=== PATIENT | female | born 1995 | race Caucasian/White ===

== ENCOUNTER 2016-05-11 20:48 | Inpatient (IN) ==
[2016-05-11] MEDS ORDERED: PEPCID IV PRN (21:05)
[2016-05-11] MEDS ORDERED: AMBIEN PO PRN (21:05)
[2016-05-11] MEDS ORDERED: KEFZOL 1 GM/D5W 1 GM/50 ML IVPB IV PRN (21:05)
[2016-05-11] MEDS ORDERED: PEPCID PO PRN (21:05)
[2016-05-11] MEDS ORDERED: BRETHINE SUBQ PRN (21:05)
[2016-05-11] MEDS ORDERED: STADOL IV PRN ×3 (21:05)
[2016-05-11] MEDS ORDERED: REGLAN PO ONE (21:05)
[2016-05-11] MEDS ORDERED: TYLENOL PO PRN (21:05)
[2016-05-11] MEDS ORDERED: ZOFRAN IV PRN (21:05)
[2016-05-11] MEDS: LR 1,000 ML IV ONE (21:50)
[2016-05-11] MEDS ORDERED: AMPICILLIN 2 GM/NS 2 GM/100 ML IVPB IV ONE (22:00)
[2016-05-11] MEDS ORDERED: CYTOTEC PO ONE (22:30)
[2016-05-11 23:19] LABS: URINE SOURCE VOIDED
[2016-05-11 23:19] LABS: MANUAL DIFF NEEDED? NO
[2016-05-11 23:20] LABS: BASO% 0.1 % (0.0-0.8); EOS# 0.15 X1000 (0.0-0.7); HEMATOCRIT 36.1 % (37.0-47.0); HEMOGLOBIN 12.4 g/dL (12.0-16.0); IMM GRAN# 0.09 X1000 (0.0-0.04); IMM GRAN% 0.6 % (0.0-0.5); LYMPH# 3.17 X1000 (1.2-3.4); LYMPH% 21.3 % (20.5-51.1); MCH 30.6 PG (27-31); MCHC 34.3 g/dL (33-37); MCV 89.1 FL (81-99); MONO# 0.96 X1000 (0.11-0.59); MONO% 6.5 % (1.7-9.3); MPV 10.5 FL (7.4-10.4); NEUT% 70.5 % (42.2-75.2); PLT 270 X1000 (130-400); RBC 4.05 XMIL (4.2-5.4)
[2016-05-11 23:43] LABS: BILIRUBIN URINE NEGATIVE (NEGATIVE); BLOOD URINE NEGATIVE (NEGATIVE); CLARITY CLEAR (CLEAR); COLOR YELLOW; GLUCOSE URINE NEGATIVE (NEGATIVE); LEUKOCYTES URINE TRACE (NEGATIVE); NITRITE URINE NEGATIVE (NEGATIVE); PH URINE 6.5; PROTEIN URINE TRACE mg/dL (NEGATIVE); UROBILINOGEN URINE NORMAL
[2016-05-12] MEDS: AMPICILLIN 1 GM/NS 1 GM/50 ML IVPB IV SCH ×3 (02:14→10:35)
[2016-05-12] MEDS: LR 1,000 ML IV ONE ×2 (06:21→08:34)
[2016-05-12] MEDS ORDERED: PITOCIN 30 UNITS/LR 30 UNITS/500 ML IV.SOLN IV SCH (07:00)
[2016-05-12] MEDS ORDERED: FENTANYL-BUPIV-NS 2 MCG-0.1% 200 ML EPIDURAL PRN (08:16)
[2016-05-12] MEDS ORDERED: XYLOCAINE-MPF 1% INJ ONE (08:30)
[2016-05-12] MEDS: CYTOTEC PO SCH (08:33)
[2016-05-12] MEDS ORDERED: M-M-R II VACCINE SUBQ ONE (13:09)
[2016-05-12] MEDS ORDERED: XYLOCAINE-MPF 1% INJ PRN (13:09)
[2016-05-12] MEDS ORDERED: HYDROXYZINE PO PRN (13:09)
[2016-05-12] MEDS ORDERED: PERCOCET-5 PO PRN (13:09)
[2016-05-12] MEDS ORDERED: AMBIEN PO PRN (13:09)
[2016-05-12] MEDS ORDERED: PITOCIN 20 UNITS/LR 20 UNITS/1,000 ML IV.SOLN IV SCH (13:09)
[2016-05-12] MEDS ORDERED: BOOSTRIX VACCINE IM ONE (13:09)
[2016-05-12] MEDS ORDERED: PITOCIN 30 UNITS/LR 30 UNITS/500 ML IV.SOLN IV ONE (13:09)
[2016-05-12] MEDS ORDERED: PERI MEDS (DERMOPLAST/NUPERCAINAL/TUCKS) MISC PRN (13:09)
[2016-05-12] MEDS ORDERED: BENADRYL PO PRN (13:09)
[2016-05-12] MEDS ORDERED: PITOCIN IM PRN (13:09)
[2016-05-12] MEDS ORDERED: CYTOTEC PO PRN (13:09)
[2016-05-12] MEDS ORDERED: BENADRYL IV PRN (13:09)
[2016-05-12] MEDS ORDERED: MINERAL OIL PO PRN (13:09)
[2016-05-12] MEDS ORDERED: HYDROXYZINE IM PRN (13:09)
[2016-05-12] MEDS: PERCOCET-10 PO PRN ×2 (14:30→20:54)
[2016-05-12] MEDS ORDERED: PNEUMOVAX 23 IM ONE (19:00)
[2016-05-12] MEDS: MOTRIN PO PRN (20:54)
[2016-05-12] MEDS: PERICOLACE PO SCH (20:54)
[2016-05-13] MEDS: AMPICILLIN 1 GM/NS 1 GM/50 ML IVPB IV SCH (06:09)
[2016-05-13 06:38] LABS: HEMOGLOBIN 10.9 g/dL (12.0-16.0); MCH 30.1 PG (27-31); MCV 91.2 FL (81-99); MPV 10.3 FL (7.4-10.4); RBC 3.62 XMIL (4.2-5.4)
[2016-05-13] MEDS: PERCOCET-10 PO PRN ×3 (10:02→20:56)
[2016-05-13] MEDS: MOTRIN PO PRN ×2 (10:02→20:56)
[2016-05-13] MEDS: PERICOLACE PO SCH (20:56)
[2016-05-14 07:12] VITALS: BP 115/59
[2016-05-14] MEDS: MOTRIN PO PRN (08:24)
[2016-05-14] MEDS: PERCOCET-10 PO PRN ×2 (08:24→13:16)
== END 2016-05-14 14:00 | disposition home or self-care (01) ==
LOC: P.LD 20:48
PROVIDERS: ADMIT Obstetrics & Gynecology; ATTEND Obstetrics & Gynecology

== ENCOUNTER 2019-03-07 07:42 | Inpatient (IN) ==
[2019-03-07] MEDS ORDERED: AMPICILLIN 2 GM in NS 100 ML IV ONE (09:21)
[2019-03-07] MEDS ORDERED: PEPCID IV PRN (09:21)
[2019-03-07] MEDS ORDERED: STADOL IV PRN (09:21)
[2019-03-07] MEDS ORDERED: KEFZOL 2 GM/D5W 2 GM/50 ML IVPB IV PRN (09:21)
[2019-03-07] MEDS ORDERED: REGLAN PO PRN (09:21)
[2019-03-07] MEDS ORDERED: PEPCID PO PRN ×2 (09:21)
[2019-03-07] MEDS ORDERED: ZOFRAN IV PRN (09:21)
[2019-03-07] MEDS ORDERED: TYLENOL PO PRN (09:21)
[2019-03-07] MEDS ORDERED: PITOCIN 30 UNITS/NS 30 UNIT/500 ML IV.SOLN IV SCH ×2 (09:30→13:30)
[2019-03-07] MEDS ORDERED: SODIUM CHLORIDE 0.9% INJ SCH (09:30)
[2019-03-07 09:31] LABS: URINE SOURCE VOIDED
[2019-03-07 09:33] LABS: BILIRUBIN URINE NEGATIVE (NEGATIVE); BLOOD URINE TRACE (NEGATIVE); COLOR YELLOW; GLUCOSE URINE NEGATIVE (NEGATIVE); KETONE URINE TRACE mg/dL (NEGATIVE); LEUKOCYTES URINE TRACE (NEGATIVE); NITRITE URINE NEGATIVE (NEGATIVE); PH URINE 6.5; PROTEIN URINE TRACE mg/dL (NEGATIVE); SP GRAVITY URINE 1.028; TURBIDITY URINE HAZY (CLEAR); UROBILINOGEN URINE NORMAL (NORMAL)
[2019-03-07 09:49] LABS: BASO# 0.03 X1000 (0.0-0.2); BASO% 0.3 % (0.0-0.8); EOS# 0.13 X1000 (0.0-0.7); EOS% 1.1 % (0.0-10.0); HEMATOCRIT 35.3 % (37.0-47.0); HEMOGLOBIN 11.4 g/dL (12.0-16.0); IMM GRAN# 0.08 X1000 (0.0-0.04); IMM GRAN% 0.7 % (0.0-0.5); LYMPH# 2.56 X1000 (1.2-3.4); LYMPH% 22.3 % (20.5-51.1); MCH 28.7 PG (27-31); MCHC 32.3 g/dL (33-37); MCV 88.9 FL (81-99); MONO# 0.81 X1000 (0.11-0.59); MONO% 7.1 % (1.7-9.3); MPV 10.1 FL (7.4-10.4); NEUT# 7.85 X1000 (1.4-6.5); NEUT% 68.5 % (42.2-75.2); PLT 237 X1000 (130-400); RBC 3.97 XMIL (4.2-5.4); WBC 11.46 X1000 (4.8-10.8)
--- NOTE | 2019-03-07 09:54 | Diag Imaging Result Doc PS360 ---
EXAM: US OBS COMPLETE > 14 WKS HISTORY: variable decelerations TECHNIQUE: OB ultrasound COMPARISON: None. FINDINGS: There is a late term intrauterine . heart rate is 136 bpm. Amniotic fluid index is calculated to be 14.20 cm. Fetus is in cephalic presentation. IMPRESSION: heart rate is 136 bpm. Electronically signed by Cecilio Salas 03/07/2019 9:51 AM
[2019-03-07] MEDS: LR 1,000 ML IV SCH ×2 (09:56→10:48)
[2019-03-07] MEDS ORDERED: XYLOCAINE-MPF 1% INJ PRN ×2 (10:00→13:22)
[2019-03-07] MEDS ORDERED: MINERAL OIL TOP PRN (10:01)
[2019-03-07 10:15] LABS: UR AMPHETAMINES QUAL NONE DETECTED (NONE DETECT); UR BARBITUATES QUAL NONE DETECTED (NONE DETECT); UR BENZODIAZEPIN QUAL NONE DETECTED (NONE DETECT); UR CANNABINOIDS QUAL PRESUMPTIVE POSITIVE (NONE DETECT); UR COCAINE QUAL NONE DETECTED (NONE DETECT); UR METHADONE QUAL NONE DETECTED (NONE DETECT); UR OPIATES QUAL NONE DETECTED (NONE DETECT); UR OXYCODONE QUAL NONE DETECTED (NONE DETECT); UR PCP QUAL NONE DETECTED (NONE DETECT)
[2019-03-07] MEDS ORDERED: FENTANYL-BUPIV-NS 500 MCG-0.125% 250 ML EPIDURAL PRN (10:28)
[2019-03-07] MEDS ORDERED: SODIUM CHLORIDE 0.9% IV ONE (10:45)
[2019-03-07] MEDS ORDERED: NEO-SYNEPHRINE IV ONE (10:45)
[2019-03-07] MEDS ORDERED: FENTANYL IV ONE (10:45)
[2019-03-07] MEDS ORDERED: NAROPIN 0.2% INJ ONE (10:45)
--- NOTE | 2019-03-07 10:50 | HISTORY AND PHYSICAL ---
ALLERGIES: None. This patient is a 22-year-old 4, para 1-1-1-2 at 39 and 5, who presented to Labor and Delivery with complaint of contractions. PAST MEDICAL HISTORY, SURGICAL HISTORY: Remarkable for an ectopic in 2018 with removal of left fallopian tube. History of nausea and vomiting. Hepatitis C antibody, and she is Rh negative. She is a positive smoker. She does not drink. She has no known drug allergies. REVIEW OF SYSTEMS: Essentially negative. PHYSICAL EXAMINATION: WDWN WF in no acute distress, comfortable VITAL SIGNS: Stable. She is afebrile. CARDIOVASCULAR EXAM: Negative. ABDOMEN: Soft and nontender. PELVIC: Done by the staff, 3 to 4 cm, 80% and posterior. She was having irregular contractions. heart rate was 130s reactive with accels. Bedside ultrasound noted the impression of decreased amniotic fluid. The cord was in the fluid pockets, and she did have a grade 3 placenta. The baby noted to be vertex presentation. DIAGNOSTIC DATA: Her lab work is pending. ASSESSMENT/PLAN: Multipara at term in early labor. She is also positive GBS. She is admitted for labor management. GBS will be treated with ampicillin and she will be augmented as indicated. Patient verbalized understanding of management plans and all questions answered. [facility]
--- NOTE | 2019-03-07 12:26 | PROVIDER PROGRESS NOTE ---
- Subjective Patient comfortable with epidural Fhr stable, reactive Exam: 9/C/plus 1, continue to follow, expect delivery shortly Physical Exam Objective Vital Signs - 8 hr 03/07/19 10:14 03/07/19 12:00 Temperature 98 F 97 F L Pulse Rate 72 78 Respiratory Rate 18 18 Blood Pressure 105/60 93/60 O2 Sat by Pulse Oximetry 98 97 Active Medications Generic Name Dose Route Start Last Admin Trade Name Freq PRN Reason Stop Dose Admin Acetaminophen 650 mg 03/07/19 09:21 Tylenol PO Q4-6H PRN PRN Headache Butorphanol Tartrate 2 mg 03/07/19 09:21 Stadol IV ONCE PRN PRN Pain Famotidine 40 mg 03/07/19 09:21 Pepcid PO Q12H PRN PRN GI upset or indigestion Famotidine 20 mg 03/07/19 09:21 Pepcid IV Q12H PRN PRN GI upset or indigestion Famotidine 20 mg 03/07/19 09:21 Pepcid PO ONCE PRN PRN section Cefazolin Sodium/Dextrose 2 gm in 50 mls @ 50 mls/hr 03/07/19 09:21 Kefzol 2 Gm/D5w IV ONCE PRN PRN section Lactated Ringer's 1,000 mls @ 0 mls/hr 03/07/19 09:30 03/07/19 10:48 Lr IV 999 mls/hr .Q0M JAME Administration As Directed Oxytocin/Sodium Chloride 30 unit in 500 mls @ 0 mls/hr 03/07/19 09:30 03/07/19 10:09 Pitocin 30 Units/Ns IV 2 mls/hr .Q0M JAME Administration As Directed Ampicillin Sodium 1 gm/ Sodium 50 mls @ 100 mls/hr 03/07/19 13:23 Chloride IV Q4H JAME Fentanyl/Bupivacaine/Sodium Chlor 250 mls @ 0 mls/hr 03/07/19 10:28 Zykspxzq-Mzgoq-Yf 500 Mcg-0.125% EPIDURAL .Q0M PRN As Directed Lidocaine HCl 30 ml 03/07/19 10:00 Xylocaine-Mpf 1% INJ PRN PRN local for vaginal repair Metoclopramide HCl 10 mg 03/07/19 09:21 Reglan PO ONCE PRN PRN section Mineral Oil 30 ml 03/07/19 10:01 Mineral Oil TOP PRN PRN perineal massage Ondansetron HCl 4 mg 03/07/19 09:21 Zofran IV PRN PRN Nausea Sodium Chloride 5 - 10 ml 03/07/19 09:30 Sodium Chloride 0.9% INJ DIRECTED [facility] Laboratory Results - last 24 hr 03/07/19 03/07/19 03/07/19 07:55 07:55 09:30 WBC RBC Hgb Hct MCV MCH MCHC RDW Std Deviation Plt Count MPV Immature Gran % (Auto) Neut % (Auto) Lymph % (Auto) [place] % (Auto) Eos % (Auto) Baso % (Auto) Immature Gran # (Auto) Neut # (Auto) Lymph # (Auto) [place] # (Auto) Eos # (Auto) Baso # (Auto) Urine Source VOIDED Urine Color YELLOW Urine Turbidity HAZY Urine pH 6.5 Ur Specific [place] 1.028 Urine Protein TRACE A Ur Glucose (Stick) NEGATIVE Ur Ketones (Stick) TRACE A Urine Blood TRACE A Urine Nitrite NEGATIVE Urine Bilirubin NEGATIVE Urobilinogen Dipstick NORMAL Urine Leukocytes TRACE A Urine Opiates Screen NONE DETECTED Ur Oxycodone Screen NONE DETECTED Ur Methadone, Qual NONE DETECTED Ur Barbiturates Screen NONE DETECTED Ur Phencyclidine Scrn NONE DETECTED Ur Amphetamines Screen NONE DETECTED U Benzodiazepines Scrn NONE DETECTED Urine Cocaine Screen NONE DETECTED U Cannabinoids Screen PRESUMPTIVE POSITIVE A RPR NON-REACTIVE 03/07/19 09:30 WBC 11.46 H RBC 3.97 L Hgb 11.4 L Hct 35.3 L MCV 88.9 MCH 28.7 MCHC 32.3 L RDW Std Deviation 14.0 Plt Count 237 MPV 10.1 Immature Gran % (Auto) 0.7 H Neut % (Auto) 68.5 Lymph % (Auto) 22.3 [place] % (Auto) 7.1 Eos % (Auto) 1.1 Baso % (Auto) 0.3 Immature Gran # (Auto) 0.08 H Neut # (Auto) 7.85 H Lymph # (Auto) 2.56 [place] # (Auto) 0.81 H Eos # (Auto) 0.13 Baso # (Auto) 0.03 Urine Source Urine Color Urine Turbidity Urine pH Ur Specific [place] Urine Protein Ur Glucose (Stick) Ur Ketones (Stick) Urine Blood Urine Nitrite Urine Bilirubin Urobilinogen Dipstick Urine Leukocytes Urine Opiates Screen Ur Oxycodone Screen Ur Methadone, Qual Ur Barbiturates Screen Ur Phencyclidine Scrn Ur Amphetamines Screen U Benzodiazepines Scrn Urine Cocaine Screen U Cannabinoids Screen RPR
[2019-03-07] MEDS ORDERED: PERI MEDS (DERMOPLAST/NUPERCAINAL/TUCKS) MISC PRN (13:22)
[2019-03-07] MEDS ORDERED: HYDROXYZINE IM PRN (13:22)
[2019-03-07] MEDS ORDERED: ATARAX PO PRN (13:22)
[2019-03-07] MEDS ORDERED: BOOSTRIX VACCINE IM ONE (13:22)
[2019-03-07] MEDS ORDERED: AMBIEN PO PRN (13:22)
[2019-03-07] MEDS ORDERED: CYTOTEC PO PRN (13:22)
[2019-03-07] MEDS ORDERED: MINERAL OIL PO PRN (13:22)
[2019-03-07] MEDS ORDERED: BENADRYL IV PRN (13:22)
[2019-03-07] MEDS ORDERED: M-M-R II VACCINE SUBQ ONE (13:22)
[2019-03-07] MEDS ORDERED: PITOCIN IM PRN (13:22)
[2019-03-07] MEDS ORDERED: BENADRYL PO PRN (13:22)
[2019-03-07] MEDS ORDERED: AMPICILLIN 1 GM in NS 50 ML IV SCH (13:23)
[2019-03-07] MEDS ORDERED: PERCOCET-5 PO PRN (13:31)
[2019-03-07] MEDS ORDERED: PITOCIN 20 UNITS/NS 20 UNITS/1,000 ML IV.SOLN ONE (14:28)
[2019-03-07] MEDS ORDERED: PITOCIN 20 UNITS/NS 20 UNITS/1,000 ML IV.SOLN IV SCH (15:00)
--- NOTE | 2019-03-07 18:26 | OPERATIVE NOTE ---
PROCEDURE DATE: 03/07/2019 DELIVERY NOTE: DELIVERY DATE AND TIME: On 03/07/2019 at 1309 hours. PROCEDURE: Amniotic fluid was clear. Placenta delivery was 1312 hours, spontaneous, a 3-vessel cord. The patient delivered spontaneously over an intact perineum of a full-term living female child, 7 pounds 11 ounces. scores were 9 and 9. resuscitation was none. COMPLICATIONS: None. ANESTHESIA: Epidural. FINDINGS: The placenta was expressed intact with no episiotomy, and no lacerations were noted. ESTIMATED BLOOD LOSS: 250 mL. MATERNAL COMPLICATIONS: None.
[2019-03-07] MEDS: PERICOLACE PO SCH (21:07)
[2019-03-08 07:30] LABS: HEMATOCRIT 32.5 % (37.0-47.0); HEMOGLOBIN 10.5 g/dL (12.0-16.0); MCH 29.5 PG (27-31); MCHC 32.3 g/dL (33-37); MCV 91.3 FL (81-99); MPV 10.3 FL (7.4-10.4); RBC 3.56 XMIL (4.2-5.4); RDW 14.2 % (11.5-14.5); WBC 11.6 X1000 (4.8-10.8)
[2019-03-08] MEDS: MOTRIN PO PRN ×2 (08:04→15:57)
--- NOTE | 2019-03-08 10:03 | OB/GYN PROGRESS NOTE ---
- Subjective Patient resting in bed and doing well. Denies dizziness. Her bleeding is well controlled. She is bottle feeding. OB Physical Exam Vital Signs - 8 hr 03/08/19 04:00 03/08/19 08:00 Temperature 98.0 F 96.7 F L Pulse Rate 66 60 Respiratory Rate 16 18 Blood Pressure 108/63 118/66 O2 Sat by Pulse Oximetry 99 99 - CONSTITUTIONAL General Appearance: appears well - RESPIRATORY Respiratory: lungs clear - CARDIOVASCULAR Cardiovascular: regular rate, rhythm - GASTROINTESTINAL (ABDOMEN) Abdominal Exam: non tender - MUSCULOSKELETAL Extremity: non-tender - NEUROLOGIC Neurologic: grossly normal - PSYCHIATRIC Psych/Mental Status: normal mood/affect (Uterus below the umbilicus) Active Medications Generic Name Dose Route Start Last Admin Trade Name Freq PRN Reason Stop Dose Admin Acetaminophen 650 mg 03/07/19 09:21 Tylenol PO Q4-6H PRN PRN Headache Benzocaine 1 each 03/07/19 13:22 Betsy Meds (Dermoplast/Nupercainal/Tucks) MISC 3-4XDAY PRN PRN episiotomy/hemorrhoids Butorphanol Tartrate 2 mg 03/07/19 09:21 Stadol IV ONCE PRN PRN Pain Diphenhydramine HCl 25 mg 03/07/19 13:22 Benadryl PO Q4H PRN PRN Itching Diphenhydramine HCl 12.5 mg 03/07/19 13:22 Benadryl IV Q4H PRN PRN Itching Famotidine 40 mg 03/07/19 09:21 Pepcid PO Q12H PRN PRN GI upset or indigestion Famotidine 20 mg 03/07/19 09:21 Pepcid IV Q12H PRN PRN GI upset or indigestion Famotidine 20 mg 03/07/19 09:21 Pepcid PO ONCE PRN PRN section Hydroxyzine HCl 50 mg 03/07/19 13:22 Atarax PO Q3-4H PRN PRN Nausea Hydroxyzine HCl 50 mg 03/07/19 13:22 Hydroxyzine IM Q3-4H PRN PRN Nausea Cefazolin Sodium/Dextrose 2 gm in 50 mls @ 50 mls/hr 03/07/19 09:21 Kefzol 2 Gm/D5w IV ONCE PRN PRN section Lactated Ringer's 1,000 mls @ 0 mls/hr 03/07/19 09:30 03/07/19 10:48 Lr IV 999 mls/hr .Q0M JAME Administration As Directed Fentanyl/Bupivacaine/Sodium Chlor 250 mls @ 0 mls/hr 03/07/19 10:28 03/07/19 11:35 Xatoqlzr-Ecxer-At 500 Mcg-0.125% EPIDURAL 16 mls/hr .Q0M PRN Administration As Directed Oxytocin/Sodium Chloride 20 units in 1,000 mls @ 0 mls/hr 03/07/19 15:00 Pitocin 20 Units/Ns IV .Q0M JAME As Directed Ibuprofen 800 mg 03/07/19 13:22 03/08/19 08:04 Motrin PO 800 mg Q8H PRN PRN Administration cramping Lidocaine HCl 30 ml 03/07/19 10:00 Xylocaine-Mpf 1% INJ PRN PRN local for vaginal repair Lidocaine HCl 30 ml 03/07/19 13:22 Xylocaine-Mpf 1% INJ PRN PRN Perineal repair Metoclopramide HCl 10 mg 03/07/19 09:21 Reglan PO ONCE PRN PRN section Mineral Oil 30 ml 03/07/19 10:01 Mineral Oil TOP PRN PRN perineal massage Mineral Oil 30 ml 03/07/19 13:22 Mineral Oil PO PRN PRN Perineal massage Misoprostol 800 microgm 03/07/19 13:22 Cytotec PO PRN PRN Severe bleeding Ondansetron HCl 4 mg 03/07/19 09:21 Zofran IV PRN PRN Nausea Oxycodone/Acetaminophen 1 each 03/07/19 13:31 Percocet-5 PO Q4H PRN PRN Pain Oxytocin 20 unit 03/07/19 13:22 Pitocin IM PRN PRN Severe bleeding Senna/Docusate Sodium 1 each 03/07/19 21:00 03/07/19 21:07 Pericolace PO 1 each QHS JAME Administration Sodium Chloride 5 - 10 ml 03/07/19 09:30 Sodium Chloride 0.9% INJ DIRECTED JAME Zolpidem Tartrate 10 mg 03/07/19 13:22 Ambien PO HS PRN PRN Sleep Laboratory Results - last 24 hr 01/3103/07/19 03/08/19 07:55 09:30 05:56 WBC 11.60 H RBC 3.56 L Hgb 10.5 L Hct 32.5 L MCV 91.3 MCH 29.5 MCHC 32.3 L RDW Std Deviation 14.2 Plt Count 191 MPV 10.3 Urine Opiates Screen NONE DETECTED Ur Oxycodone Screen NONE DETECTED Ur Methadone, Qual NONE DETECTED Ur Barbiturates Screen NONE DETECTED Ur Phencyclidine Scrn NONE DETECTED Ur Amphetamines Screen NONE DETECTED U Benzodiazepines Scrn NONE DETECTED Urine Cocaine Screen NONE DETECTED U Cannabinoids Screen PRESUMPTIVE POSITIVE A RPR NON-REACTIVE ABO/Rh RhIG Candidate? 03/08/19 05:56 WBC RBC Hgb Hct MCV MCH MCHC RDW Std Deviation Plt Count MPV Urine Opiates Screen Ur Oxycodone Screen Ur Methadone, Qual Ur Barbiturates Screen Ur Phencyclidine Scrn Ur Amphetamines Screen U Benzodiazepines Scrn Urine Cocaine Screen U Cannabinoids Screen RPR ABO/Rh A NEGATIVE RhIG Candidate? NO OB Assessment & Plan (1) care and examination Status: Acute Plan: Routine care, encourage ambulation
[2019-03-08] MEDS: PERICOLACE PO SCH (21:27)
[2019-03-09] MEDS ORDERED: PNEUMOVAX 23 IM ONE (08:45)
[2019-03-09 08:48] VITALS: BP 105/58
== END 2019-03-09 10:25 | disposition home or self-care (01) | DRG 807 ==
LOC: OPLD 07:42 → LD 07:44
PROVIDERS: ADMIT Obstetrics & Gynecology; ATTEND Obstetrics & Gynecology